=== PATIENT | male | born 1955 | race Caucasian/White ===

== ENCOUNTER 2018-01-09 11:23 | Observation (INO) | payer OTHER ==
[~2018-01-09] VITALS: Ht 172.7 cm; Wt 69.6 kg
[~2018-01-09 11:23] MED LIST: ASPIRIN81 M4 PO; ATORVASTATIN CA40 M1 PO; ATORVASTATIN CA80 M1 PO; CYCLOBENZAPRINE10 M1 PO; DELTASONE20 MG PO; LISINOPRIL40 M1 PO; MEDROL4 M2 PO; NORCO 5-325 TA1 EACH PO; PERCOCET 5-3251 EACH PO; PREDNISONE10 M2 PO; ZITHROMAX250 M2 PO
--- NOTE | 2018-01-09 11:36 | ED CARDIAC/CP/PALPITATIONS ---
History of Present Illness General Chief Complaint: Chest Pain Stated Complaint: CP, NUMBNESS IN LEFT FINGERS, NAUSEA Source: patient, family Exam Limitations: no limitations Vital Signs & Intake/Output Vital Signs & Intake/Output Vital Signs Date Time Temp Pulse Resp B/P B/P Pulse O2 O2 Flow FiO2 Mean Ox Delivery Rate 01/09 1135 98.5 92 15 153/88 100 Room Air Room Air Allergies Coded Allergies: No Known Allergies (10/03/17) Reconcile Medications Aspirin (Aspirin*) 81 MG TAB.CHEW 1 TAB PO DAILY TIA Atorvastatin Calcium 40 MG TABLET 1 TAB PO DAILY hyperlipidemia Azithromycin (Zithromax) 250 MG TABLET 1 DP PO AD PNEUMONIA 2 the first day followed by 1 for days 2-5 Cyclobenzaprine HCl 10 MG TABLET 1 TAB PO TID BACK PAIN Lisinopril 40 MG TABLET 1 TAB PO DAILY HEART (Reported) Methylprednisolone. (Medrol) 4 MG TAB.DS.PK 1 DP PO AD BACK PAIN 6 on day 1 then reduce by one tablet daily until gone Oxycodone HCl/Acetaminophen (Percocet 5-325 MG Tablet) 5 MG-325 MG TABLET 1-2 TAB PO Q6P PRN pain Oxycodone HCl/Acetaminophen (Percocet 5-325 MG Tablet) 5 MG-325 MG TABLET 1-2 TAB PO Q6P PRN PAIN Triage Note: PT PRESENTS TO ED WITH CHEST TIGHTNESS, SOB, +NAUSEA WITH ONE EPISODE OF CLEAR VOMIT AND L SIDED HAND NUMBNESS THIS MORNING AT 0500. PT HAS HX OF AR AND CVA THIS PAST YEAR. DENIES CHANGE IN VISION, HEADACHE, DIZZINESS. SYMPTOMS ARE INTERMITTENT. NO OBVIOUS WEAKNESS TO BILATERAL EXTREMETIES IN TRIAGE. ANSWERING QUESTIONS APPROPRIATELY. TAKEN TO ROOM 10. Triage Nurses Notes Reviewed? yes HPI: This is a 62-year-old male with history of AR at the age of 40, high cholesterol , tobacco abuse, previous Hodgkin's lymphoma and TIA 4 months ago who presents to the ER for chief complaint of episode of shortness of breath, chest pain diaphoresis and vomiting that woke him up at 4:00 this morning from sleep. He vomited once a large amount of clear liquid material. He states he got to go the bathroom and felt like he was very winded and had chest discomfort. It left sided tingling in his arm and hand as his previous event which is now resolved. He still felt nauseous on the way to the hospital. Patient was here evaluated for TIA versus seizure left AMA. He states he is still taking aspirin but is not taking the other blood thinner that was recommended to him. He followed once up with his doctor in [place] after the event and was found to have some elevated high blood pressure. He is on fosinopril, aspirin, Percocet for chronic back pain as well as a statin for his high cholesterol. Patient also reports a 35 pound weight loss in the last 4 months that has been involuntary. He states that he has a early satiety and no appetite. Denies any black or bloody stool. He states he stopped taking the antiplatelet agent because it was causing him to have bruises whenever he shaved her himself. Positive significant family history of coronary disease in both parents. He only smokes cigars no longer smokes cigarettes, he does not use any drugs or alcohol at this time. Past History Travel History Traveled to [place] past 21 day No Medical History Any Pertinent Medical History? 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 History of MRSA: No History of VRE: No History of CDIFF: No Surgical History Surgical History: non-contributory Psychosocial History Who do you live with Spouse What is your primary language Divehi Tobacco Use: Current Daily Use Daily Tobacco Use Amount/Type: Cigar or Pipe use daily ETOH Use: denies use Illicit Drug Use: denies illicit drug use Family History Family History, If Any: FATHER Relation not specified for: *No pertinent family history CHF (congestive heart failure) Progress Plan of Care: Orders Procedure Date/time Status Heart Healthy Diet 01/09 D Active LACTIC ACID 01/[address] in observation 01/09 1311 Active ED Holding Orders 01/09 1311 Active Vital Signs 01/09 1311 Active Code Status 01/09 1311 Active Add-on Test (ER Only) 01/09 1200 Active Telemetry/[employer] Counselor 01/09 1138 Active TROPONIN LEVEL 01/09 1138 Complete PARTIAL THROMBOPLASTIN TIME 01/09 1138 Complete PROTHROMBIN TIME 01/09 1138 Complete MAGNESIUM 01/09 1138 Complete LIPASE 01/09 1138 Complete LACTIC ACID 01/09 1138 Complete COMPREHENSIVE METABOLIC PANEL 01/09 1138 Complete CBC WITHOUT DIFFERENTIAL 01/09 1138 Complete EKG 01/09 1127 Active Laboratory Tests 01/09/18 1210: Anion Gap 13, Estimated GFR > 60, BUN/Creatinine Ratio 12.9, Glucose 94, Lactic Acid 1.2, Calcium 9.7, Magnesium 1.9, Total Bilirubin 0.7, AST 11 L, ALT 23, Alkaline Phosphatase 62, Troponin I < 0.01, Total Protein 7.2, Albumin 4.5, Globulin 2.7, Albumin/Globulin Ratio 1.7, Lipase 91, PT 12.2, INR 1.12, APTT 39 H, CBC w Diff NO MAN DIFF REQ, RBC 5.06, MCV 88.1, MCH 29.2, MCHC 33.2, RDW 15.2 H, MPV 8.1, Gran % 54.9, Lymphocytes % 31.2, Monocytes % 8.7, Eosinophils % 3.7 , Basophils % 1.5, Absolute Granulocytes 4.1, Absolute Lymphocytes 2.4, Absolute Monocytes 0.7 H, Absolute Eosinophils 0.3, Absolute Basophils 0.1 Diagnostic Imaging: Viewed by Me: Radiology Read, CT Scan. Discussed w/RAD: Radiology Read, CT Scan. Radiology Impression: PATIENT: LOY PETTY PRESENT AGE: 62 PATIENT ACCOUNT NO: [id number] : 55 LOCATION: [facility] ORDERING PHYSICIAN: Sofie Sow MD SERVICE DATE: 01/09/18-1152 EXAM TYPE: CAT - CT HEAD WO IV CONTRAST CT HEAD WITHOUT CONTRAST CLINICAL INFORMATION: Left-sided numbness with history of CVA 4 months ago. COMPARISON: MRI brain 07/05/2017. TECHNIQUE: Contiguous axial imaging was performed from the skull base to vertex without intravenous administration of contrast. FINDINGS: There is no intracranial hemorrhage, hydrocephalus, extra-axial surface collection, midline shift, or other herniation pattern. Mercado to white matter differentiation is diffusely maintained without evidence of an evolved acute territorial infarct. The basilar cisterns are preserved. No significant soft tissue abnormality. No acute osseous abnormality. Partially imaged polypoid soft tissue within the maxillary sinuses bilaterally. There is mild mucosal thickening within the right ethmoid air cells. The remaining imaged paranasal sinuses and the mastoid air cells are clear. IMPRESSION: No acute intracranial abnormality. DICTATED BY: Doc Gonzalez MD DATE/TIME DICTATED:01/09/181216 ALIGNMENT SPECIALIST:MILENA DATE/TIME TRANSCRIBED:01/09/181216 CONFIDENTIAL, DO NOT COPY WITHOUT APPROPRIATE AUTHORIZATION. <Electronically signed in Other Vendor System> SIGNED BY: Doc Gonzalez MD 01/09/18 1226 CXR Impression: PATIENT: LOY PETTY PRESENT AGE: 62 PATIENT ACCOUNT NO: [id number] : 55 LOCATION: [facility] ORDERING PHYSICIAN: oSfie Sow MD SERVICE DATE: 01/09/18 EXAM TYPE: RAD - XRY-PORTABLE CHEST XRAY EXAMINATION: XR PORTABLE CHEST CLINICAL INFORMATION: Chest pain and shortness of breath. COMPARISON: Chest radiograph 07/05/2017. TECHNIQUE: Portable frontal view of the chest was obtained. FINDINGS: There is symmetric lung inflation. There is no focal consolidation, pleural effusion, or pneumothorax. Cardiac silhouette size is normal. There are no acute osseous findings. IMPRESSION: No acute pulmonary process. DICTATED BY: Doc Gonzalez MD DATE/TIME DICTATED:01/09/181258 ALIGNMENT SPECIALIST:MILENA DATE/TIME TRANSCRIBED:01/09/181258 CONFIDENTIAL, DO NOT COPY WITHOUT APPROPRIATE AUTHORIZATION. <Electronically signed in Other Vendor System> SIGNED BY: Doc Gonzalez MD 01/09/18 1304 Initial ED EKG: NSR (86 BPM) Departure Departure Time of Disposition: 1312 Disposition: STILL A PATIENT Condition: Stable Clinical Impression Primary Impression: Chest pain at rest Referrals: Patient Has No Primary Care Dr Departure Forms: Customer Survey General Discharge Information Observation Note Spoke With: Pina Campbell MD Physician Advisor Notified: MAIRA CAO MD (CASE MANAGEMENT) Place Patient In: Non-ED OBS Care Area Rationale for Observation: My rational for observation is as follows [TELE MONITOR, NEURO CHECKS, NEUROLOGY CONSULT, EEG, CARDIOLOGY CONSULTATION, OBTAIN RECORDS FROM [facility]]. Patient Has No Primary Care Dr Departure Forms: Customer Survey General Discharge Information Observation Note Spoke With: Pina Campbell MD Physician Advisor Notified: MAIRA CAO MD (CASE MANAGEMENT) Place Patient In: Non-ED OBS Care Area Rationale for Observation: My rational for observation is as follows [TELE MONITOR, NEURO CHECKS, NEUROLOGY CONSULT, EEG, CARDIOLOGY CONSULTATION, OBTAIN RECORDS FROM [facility]].
[2018-01-09 12:17] LABS: ABSOLUTE BASOPHIL COUNT 0.1 /CUMM (0.0-0.2); ABSOLUTE EOSINOPHIL COUNT 0.3 /CUMM (0.0-0.7); ABSOLUTE GRANULOCYTE CT 4.1 /CUMM (1.4-6.5); ABSOLUTE LYMPH COUNT 2.4 /CUMM (1.2-3.4); ABSOLUTE MONOCYTE COUNT 0.7 /CUMM (0.10-0.60); BASOPHIL % 1.5 % (0.0-2.0); EOSINOPHIL % 3.7 % (0-5); GRANULOCYTE % 54.9 % (42.2-75.2); HEMATOCRIT 44.6 % (42-52); MEAN CORPUSCULAR HGB 29.2 PG (27.0-31.0); MEAN CORPUSCULAR HGB CONC 33.2 G/DL (33.0-37.0); MEAN CORPUSCULAR VOLUME 88.1 FL (80.0-94.0); MEAN PLATELET VOLUME 8.1 FL (7.4-10.4); PLATELET COUNT 387 /CUMM (130-400); RBC DISTRIBUTION WIDTH 15.2 % (11.5-14.5); RED BLOOD CELL CT 5.06 /CUMM (4.70-6.10); WHITE BLOOD CELL COUNT 7.5 /CUMM (4.8-10.8)
--- NOTE | 2018-01-09 12:26 | CT SCAN REPORT ---
CT HEAD WITHOUT CONTRAST CLINICAL INFORMATION: Left-sided numbness with history of CVA 4 months ago. COMPARISON: MRI brain 07/05/2017. TECHNIQUE: Contiguous axial imaging was performed from the skull base to vertex without intravenous administration of contrast. FINDINGS: There is no intracranial hemorrhage, hydrocephalus, extra-axial surface collection, midline shift, or other herniation pattern. Mercado to white matter differentiation is diffusely maintained without evidence of an evolved acute territorial infarct. The basilar cisterns are preserved. No significant soft tissue abnormality. No acute osseous abnormality. Partially imaged polypoid soft tissue within the maxillary sinuses bilaterally. There is mild mucosal thickening within the right ethmoid air cells. The remaining imaged paranasal sinuses and the mastoid air cells are clear. IMPRESSION: No acute intracranial abnormality.
[2018-01-09 12:28] LABS: PT 12.2 SEC (9.4-12.5); PTT 39 SEC (25-37)
--- NOTE | 2018-01-09 13:04 | RADIOLOGY REPORT ---
EXAMINATION: XR PORTABLE CHEST CLINICAL INFORMATION: Chest pain and shortness of breath. COMPARISON: Chest radiograph 07/05/2017. TECHNIQUE: Portable frontal view of the chest was obtained. FINDINGS: There is symmetric lung inflation. There is no focal consolidation, pleural effusion, or pneumothorax. Cardiac silhouette size is normal. There are no acute osseous findings. IMPRESSION: No acute pulmonary process.
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
[2018-01-09 15:30] VITALS: BP 138/92
[2018-01-09 22:52] VITALS: BP 126/78
[2018-01-10 06:47] VITALS: BP 100/76
[2018-01-10 08:53] VITALS: BP 118/64
--- NOTE | 2018-01-10 10:27 | PN-Observation ---
Marta ANNE,Amanda 01/10/18 1027: Observation Note Observation Note _ I have personally examined LOY PETTY. him disposition is uncertain at this time. Before a determination can be made, he requires continued observation for the following reasons [chest pain]. Assessment/Plan Medical Assessment: Mr Petty is a 62 year gentleman w/ a PMHx of CAD, HLD, smoker (30 pk yrs ). family history of coronary artery disease, hypertension, Hodkins lymphoma s/p chemo, TIA 4 months ago, presented to the ER w/ a chief concern of dyspnea, chest pain, diaphoresis and vomiting x 1 day RN L AND D. On admission, T 98.5, HR 92, RR 50, BP 153/88, pulse ox 100% on room air. #R/O ACS #Unstable Angina? #PMH of HTN, HLD, Hodgkin's lymphoma - Observe on telemetry - Continued home meds ASA 81, lisinorpil 40mg qd, patient denied statins as it gave him muscle spasm - serial EKG/Troponin were negative which ruled out ACS - Percocet for back pain q6PRN. -[place] was checked which showed that the patient was in the ED multiple times and got discharged on Percocet many times recently -Tried to reach his PCP Dr. Beth Verma in [facility] multiple time yesterday and today but was not able because office was closed - Bowel regimen for constipation - Omeprazole for GI protectant. Patient is stable to be discharged home today to follow-up with his PCP and cardiology as outpatient DVT PPX heparin SC + ALPS Heart healthy diet Full Code Problem List: 1. Chest pain at rest Subjective Follow-up For: Chest pain Tele-Events Since Last Visit: Normal sinus rhythmsinus bradycardia: 4767, QRS 0.08, PA 0.2 Subjective: Patient was seen and examined at bedside continues to complain of intermittent brief periods of chest pain which lasts from 1-2 minutes at rest. In addition he also complains of chronic lower back pain. U tox was positive for cocaine Review of Systems Constitutional: Reports: see HPI. Objective Last 24 Hrs of Vital Signs/I&O Vital Signs Date Time Temp Pulse Resp B/P B/P Pulse O2 O2 Flow FiO2 Mean Ox Delivery Rate 01/10 0853 65 118/64 01/10 0647 98.8 61 20 100/76 95 Room Air 01/09 2252 98.6 76 20 126/78 97 01/09 1550 98 Room Air 01/09 1530 98.3 72 18 138/92 98 Room Air Intake & Output 01/10 1600 01/10 0800 01/10 0000 Intake Total 200 100 Output Total Balance 200 100 Intake, Oral 200 100 Patient 153 lb Weight Physical Exam General Appearance: Alert, Oriented X3, Cooperative, No Acute Distress HEENT: Atraumatic, PERRLA, EOMI, Mucous Membr. moist/pink Neck: Supple, No JVD Cardiovascular: Normal S1, Normal S2, No Murmurs Lungs: Clear to Auscultation Abdomen: Normal Bowel Sounds, Soft, No Tenderness Extremities: No Clubbing, No Cyanosis, No Edema Leighton Hay 01/10/18 1403: Attending MD Review Statement Attending Statement Attending MD Statement: discuss w/resident/PA/VEHICLE RETURN ASSOCIATE, agreed w/resident/PA/VEHICLE RETURN ASSOCIATE, reviewed EMR data (avail), discussed w/nursing, discussed w/case mgmt Attending Assessment/Plan: Pt wanted to sign out AMA but we discharged him. Pt has got multiple pain meds from ER multiple visits according to [place]PMP almost every month. Pts Utox was positive for cocaine but pt kept denying drug use. Pt was not very forthcoming about telling about his previous PCP in [place]. Pt chest pain resolved and his trops were negative. Pt left before I could see him and d/w him his utox results.
--- NOTE | 2018-01-10 10:35 | Patient Discharge Instructions ---
Discharge Instructions General Discharge Information You were seen/treated for: Chest pain Special Instructions: - Please follow up with your PCP after discahrge - Please follow up with GI doctor (you were given a refferal from PCP) for evaluation Acute Coronary Syndrome Inclusion Criteria At DC or during hospital stay patient has or had the following: ACS DIAGNOSIS No Discharge Core Measures Meds if any: Prescribed or Continued at Discharge Meds if any: NOT Prescribed or Continued at Discharge Congestive Heart Failure Inclusion Criteria At DC or during hospital stay patient has or had the following: CHF DIAGNOSIS No Discharge Core Measures Meds if any: Prescribed or Continued at Discharge Meds if any: NOT Prescribed or Continued at Discharge Cerebrovascular accident Inclusion Criteria At DC or during hospital stay patient has or had the following: CVA/TIA Diagnosis No Discharge Core Measures Meds if any: Prescribed or Continued at Discharge Meds if any: NOT Prescribed or Continued at Discharge Venous thromboembolism Inclusion Criteria VTE Diagnosis No VTE Type NONE VTE Confirmed by (Test) NONE Discharge Core Measures - Per Current guidelines, there needs to be overlap - treatment for the first 5 days of Warfarin therapy. - If discharged on Warfarin prior to 5 days of - overlap therapy, the patient will need to be - assessed for post discharge needs including - *Post discharge parental anticoagulation - *Warfarin and/or parental anticoagulation education - *Follow up date to check INR post discharge At least 5 days overlap therapy as Inpatient Yes Meds if any: Prescribed or Continued at Discharge Note: Overlap Therapy is Warfarin and Anticoagulant Meds if any: NOT Prescribed or Continued at Discharge
--- NOTE | 2018-01-10 13:10 | ECHOCARDIOGRAM REPORT ---
LOY PETTY Age: 62 : 1955 Gender: M Exam Date: 01/09/2018 19:36 Exam Location: [place] Ht (in): 69 Wt (lb): 150 BSA: 1.82 BP: 138 / 92 Ordering Physician: Chuckie Hernandez MD Referring Physician: Chuckie Hernandez MD Technologist: Arash uGardado [facility] Room Number: 180-1 Indications: CHEST PAIN Rhythm: Sinus Technical Quality: fair FINDINGS Left Ventricle Normal size left ventricle. No obvious regional wall motion abnormalities. Normal left ventricular ejection fraction estimated at 65-70%. Left ventricular wall thickness increased. Right Ventricle Right ventricle not well visualized, grossly normal. Right Atrium Normal right atrial size. Left Atrium Left atrial size at the upper limits of normal. Mitral Valve Structurally normal mitral valve. Trace mitral regurgitation. Aortic Valve Focal thickening of the aortic valve cusps. No aortic stenosis. Mild aortic regurgitation. Tricuspid Valve Tricuspid valve not well visualized, grossly normal. Trace to mild tricuspid regurgitation. Pulmonic Valve Pulmonic valve not well visualized, grossly normal. Pericardium No pericardial effusion. Great Vessels Aortic root and proximal ascending aorta not well visualized, grossly normal. CONCLUSIONS 1. This was a technically difficult study. 2. Aortic sclerosis is present with mild aortic insufficiency. 3. The mitral valve appears anatomically normal with minimal mitral insufficiency present. 4. THere is no significant pericardial fluid detected on this examination. 5. The left ventricular chamber size is normal with a normal ejection fraction and no visible resting wall motion abnormalities. Borderline concentric hypertrophy is present. 6. The right heart structures are grossly normal. Minimal to mild tricuspid insufficiency is present. The RV systolic pressure was not accurately assessed. Carina Gay M.D. (Electronically Signed) Final Date: 10 January 2018 13:10 MEASUREMENTS (Male / Female) Normal Values 2D ECHO LV Diastolic Diameter PLAX 4.3 cm 4.2 - 5.9 / 3.9 - 5.3 cm LV Systolic Diameter PLAX 2.9 cm 2.1 - 4.0 cm LV Fractional Shortening PLAX 32.6 % 25 - 46 % LV Ejection Fraction 2D Teich 61.2 % IVS Diastolic Thickness 1.2 cm LVPW Diastolic Thickness 1.2 cm LV Relative Wall Thickness 0.6 LVOT Diameter 2.0 cm Aortic Root Diameter 2.5 cm LA Systolic Diameter LX 2.3 cm 3.0 - 4.0 / 2.7 - 3.8 cm LV Ejection Fraction MOD BP 68.3 % >= 55 % LV Cardiac Index MOD BP 3967.4 cm/minm LV Diastolic Length 4C 6.9 cm 6.9 - 10.3 cm LV Diastolic Area 4C 31.9 cm LV Diastolic Volume MOD 4C 122.0 cm LV Ejection Fraction MOD 4C 69.7 % LV Stroke Volume MOD 4C 85.0 cm LV Cardiac Index MOD 4C 3549.8 cm/minm LV Systolic Length 4C 5.3 cm LV Systolic Area 4C 15.3 cm LV Systolic Volume MOD 4C 37.0 cm LV Ejection Fraction MOD 2C 67.9 % LV Cardiac Index MOD 2C 3883.9 cm/minm LV Diastolic Volume 4C AL 125.0 cm 85 - 139 / 69 - 109 cm LV Systolic Volume 4C AL 37.8 cm LV Ejection Fraction 4C AL 69.8 % LV Stroke Volume 4C AL 87.2 cm LV Cardiac Index 4C AL 3643.3 cm/minm LV Ejection Fraction 2C AL 69.2 % LV Cardiac Index 2C AL 3976.1 cm/minm DOPPLER AV Peak Velocity 189.0 cm/s AV Peak Gradient 14.3 mmHg AI Deceleration [place] 85.4 cm/s AI Peak Velocity 368.0 cm/s AI Pressure Half Time 1262.0 ms AI Peak Gradient 54.2 mmHg LVOT Peak Velocity 114.0 cm/s LVOT Peak Gradient 5.2 mmHg AV Area Cont Eq pk 1.9 cm Mitral E Point Velocity 88.8 cm/s Mitral A Point Velocity 78.5 cm/s Mitral E to A Ratio 1.1 MV Deceleration Time 310.0 ms LV E' Lateral Velocity 11.3 cm/s Mitral E to LV E' Lateral Ratio 7.9 LV E' Septal Velocity 7.4 cm/s Mitral E to LV E' Septal Ratio 12.0
== END 2018-01-10 11:25 ==
LOC: ERH 11:23 → ERHI 13:11 → 1NO 13:11 → ENRESERV 13:35 → ENTRNSPT 14:49 → EDTRNSPT 14:58 → EDTRNSPTSTS 14:58 → CMPTRNSPT 15:14 → 1NO 15:30 → ENPENDDIS 01-10 11:20 → 1NO 01-10 11:25
PROVIDERS: Emergency Medicine; Internal Medicine Endocrinology, Diabetes & Metabolism
DX: R07.9 Chest pain, unspecified (principal); I25.10 Atherosclerotic heart disease of native coronary artery without angina pectoris; E78.5 Hyperlipidemia, unspecified; F17.200 Nicotine dependence, unspecified, uncomplicated; Z86.73 Personal history of transient ischemic attack (TIA), and cerebral infarction without residual deficits; J45.909 Unspecified asthma, uncomplicated; I10 Essential (primary) hypertension; I25.2 Old myocardial infarction; Z79.82 Long term (current) use of aspirin; Z85.71 Personal history of Hodgkin lymphoma
CPT/HCPCS: 6020; 36592; 71045; 80307; 81003; 82436; 92610-GN; 93005; 93010; 93306; 96372; G0378; G8996-GN; G8997-GN; G8998-GN; J1644; J3490